=== PATIENT | female | born 1985 | race African-American/Black ===

== ENCOUNTER 2016-08-23 05:33 | Outpatient (CLI) | payer SELFPAY ==
[~2016-08-23] VITALS: Ht 160 cm; Wt 100.0 kg
[2016-08-23 05:44] VITALS: BP 135/86
[2016-08-23] MEDS ORDERED: LISI-170 PO (05:55)
[2016-08-23] MEDS ORDERED: PREN-3 PO (05:55)
[2016-08-23 07:39] LABS: DAU SCREEN DISCLAIMER
== END 2016-08-23 09:02 | disposition home or self-care (01) ==
LOC: LDOP 05:33
PROVIDERS: ATTEND Obstetrics & Gynecology
DX: O36.8120 Decreased fetal movements, second trimester, not applicable or unspecified (principal); O10.912 Unspecified pre-existing hypertension complicating pregnancy, second trimester; O99.332 Smoking (tobacco) complicating pregnancy, second trimester; F17.200 Nicotine dependence, unspecified, uncomplicated; Z3A.26 26 weeks gestation of pregnancy
CPT/HCPCS: 59025; 76805; 76819; 80307; 99201; G0463

== ENCOUNTER 2016-09-01 21:31 | Emergency (ER) | payer SELFPAY ==
[~2016-09-01] VITALS: Ht 160 cm; Wt 108.1 kg
[~2016-09-01 21:31] MED LIST: LISI-170 PO; PREN-3 PO
[2016-09-01 23:51] VITALS: BP 148/88
== END 2016-09-01 23:56 | disposition home or self-care (01) ==
LOC: ED 23:46
DX: O26.892 Other specified pregnancy related conditions, second trimester (principal); S82.61XA Displaced fracture of lateral malleolus of right fibula, initial encounter for closed fracture; O16.2 Unspecified maternal hypertension, second trimester; Z3A.23 23 weeks gestation of pregnancy; X58.XXXA Exposure to other specified factors, initial encounter; Y93.01 Activity, walking, marching and hiking; Y92.89 Other specified places as the place of occurrence of the external cause; Y99.8 Other external cause status
CPT/HCPCS: 99284

== ENCOUNTER 2017-01-20 23:57 | Emergency (ER) | payer MEDICAID, OTHER ==
[~2017-01-20] VITALS: Ht 160 cm; Wt 110.0 kg
[~2017-01-20 23:57] MED LIST changes: +LISI40TA PO
[2017-01-21] MEDS ORDERED: DICYCLOMINE 10 MG/ML, 2ML ONE (00:12)
[2017-01-21] MEDS ORDERED: ONDANSETRON ODT 4 MG ONE (00:12)
[2017-01-21] MEDS ORDERED: ONDANSETRON ODT 8 MG PO ONE (00:30)
[2017-01-21] MEDS ORDERED: DICYCLOMINE 10 MG/ML, 2ML IM ONE (00:30)
== END 2017-01-21 00:59 | disposition home or self-care (01) ==
LOC: ED 23:59
DX: R10.84 Generalized abdominal pain (principal); R19.7 Diarrhea, unspecified; R11.2 Nausea with vomiting, unspecified; I10 Essential (primary) hypertension; F17.200 Nicotine dependence, unspecified, uncomplicated
CPT/HCPCS: 99284; Q0162